=== PATIENT | female | born 1960 | race Caucasian/White ===

== ENCOUNTER → 2021-03-24 | Outpatient (CLI) | payer OTHER | LOC: HEART 5 11:19 | DX: I63.9 Cerebral infarction, unspecified (principal) ==

== ENCOUNTER → 2022-01-19 | Outpatient (CLI) | payer OTHER | LOC: KOH-I 09:27 | DX: M17.12 Unilateral primary osteoarthritis, left knee (principal); R60.9 Edema, unspecified; R89.9 Unspecified abnormal finding in specimens from other organs, systems and tissues; R73.03 Prediabetes; S83.242A Other tear of medial meniscus, current injury, left knee, initial encounter; M25.462 Effusion, left knee; Z74.09 Other reduced mobility | CPT/HCPCS: 73721 ==